=== PATIENT | male | born 1945 | race Caucasian/White ===

== ENCOUNTER 2017-08-12 14:59 | Emergency (ER) | payer OTHER ==
[~2017-08-12] VITALS: Ht 180.3 cm; Wt 90.9 kg
[~2017-08-12 14:59] MED LIST: B/P; CIPRO500 MG PO; DIFLUCAN200 MG PO; KEFLEX500 MG PO; PYRIDIUM100 MG PO
[2017-08-12 15:40] LABS: HEMOGLOBIN 14.4 G/DL (12.5-16.6); MCH 32.5 PG (29.0-34.0); MCV 90.3 FL (86-99); PLATELET COUNT 184 K/uL (156-360); RBC DIS.WIDTH-CV 12.6 % (11.8-14.6); RBC DIS.WIDTH-SD 41.8 % (39-53); RED BLOOD COUNT 4.43 M/uL (4.00-5.50); WHITE BLOOD COUNT 8.7 K/uL (4.1-10.2)
[2017-08-12 15:52] LABS: CHLORIDE 107 mEq/L (99-109); POTASSIUM 4.3 mEq/L (3.7-5.4); SODIUM 135 mEq/L (136-147)
[2017-08-12 15:54] LABS: GLUCOSE 225 mg/dL (70-99)
[2017-08-12 15:57] LABS: CREATININE 0.9 mg/dL (0.6-1.3); GFR ESTIMATE (CALCULATED) > 59 mL/min/ (58.99-99999)
[2017-08-12 15:58] LABS: UREA NITROGEN (BUN) 18 mg/dL (9-23)
[2017-08-12] MEDS ORDERED: ZOFRAN ODT4 MG PO (18:12)
[2017-08-12] MEDS ORDERED: FLOMAX0.4 MG PO (18:12)
[2017-08-12] MEDS ORDERED: BACTRIM,SEPT1 TABLET PO (18:12)
[2017-08-12] MEDS ORDERED: ULTRAM50 MG PO (18:12)
[2017-08-12 18:32] VITALS: BP 138/82
== END 2017-08-12 18:33 | disposition home or self-care (01) ==
LOC: EME 14:59
DX: N13.2 Hydronephrosis with renal and ureteral calculous obstruction (principal); Z87.442 Personal history of urinary calculi; I10 Essential (primary) hypertension; R73.03 Prediabetes; Z85.828 Personal history of other malignant neoplasm of skin
CPT/HCPCS: 74176; 80048; 81003; 85027; 99281; 99285; J1885; J2405; J7030

== ENCOUNTER 2018-01-19 12:22 | Inpatient (IN) | payer OTHER ==
[~2018-01-19] VITALS: Ht 180.3 cm; Wt 87.9 kg
[~2018-01-19 12:22] MED LIST changes: +BACTRIM,SEPT1 TABLET PO; +FLOMAX0.4 MG PO; +ULTRAM50 MG PO; +ZOFRAN ODT4 MG PO
[2018-01-19 12:44] LABS: BASOPHIL (%) 0.4 % (0-1); EOSINOPHIL (%) 0.2 % (0-5); HEMATOCRIT 38.7 % (38.0-50.0); HEMOGLOBIN 13.9 G/DL (12.5-16.6); IMMATURE GRANULOCYTE (%) 0.2 % (0.0-0.7); LYMPHOCYTE (%) 8.8 % (15-42); LYMPHOCYTE COUNT 0.7 K/uL (1.0-2.8); MCH 32.2 PG (29.0-34.0); MCHC 35.9 G/DL (30.0-36.0); MCV 89.6 FL (86-99); MONOCYTE (%) 8.8 % (3-12); MONOCYTE COUNT 0.7 K/uL (0-0.8); NEUTROPHIL (%) 81.6 % (45-76); NEUTROPHIL COUNT 6.6 K/uL (1.8-6.4); PLATELET COUNT 167 K/uL (156-360); RBC DIS.WIDTH-CV 12.7 % (11.8-14.6); RBC DIS.WIDTH-SD 41.7 % (39-53); RED BLOOD COUNT 4.32 M/uL (4.00-5.50); WHITE BLOOD COUNT 8.2 K/uL (4.1-10.2)
[2018-01-19 12:48] LABS: APPEARANCE SL.HAZY ((CLEAR)); BILIRUBIN NEGATIVE; BLOOD NEGATIVE; COLOR AMBER ((YELLOW)); GLUCOSE (STRIP) NEGATIVE; KETONES NEGATIVE; LEUKOCYTES MODERATE; NITRITE NEGATIVE; PROTEIN (STRIP) NEGATIVE; SPECIFIC GRAVITY 1.018 (1.000-1.030); UROBILINOGEN 0.2 MG/DL (0.2-1.0)
[2018-01-19 13:01] LABS: BACTERIA RARE /HPF; EPITHELIAL CELLS NONE SEEN /HPF; MUCUS TRACE /LPF; RED BLOOD CELLS 0-5 /HPF (0-5); UCUL ADDED? YES; WHITE BLOOD CELLS 15-20 /HPF (0-5)
[2018-01-19 13:10] LABS: CHLORIDE 104 MEQ/L (99-109); POTASSIUM 4.3 MEQ/L (3.7-5.4); SODIUM 138 MEQ/L (136-147)
[2018-01-19 13:16] LABS: CREATININE 0.9 MG/DL (0.6-1.3); GFR ESTIMATE (CALCULATED) > 59 mL/min/ (58.99-99999); GLUCOSE 136 mg/dL (70-99); UREA NITROGEN (BUN) 18 mg/dL (9-23)
[2018-01-19] MEDS ORDERED: LOW DOSE ASPIRI81 M1 PO (14:59)
[2018-01-19] MEDS ORDERED: FLOMAX0.4 MG PO (14:59)
[2018-01-19] MEDS ORDERED: ONCE DAILY1 EACH PO (15:00)
[2018-01-19] MEDS ORDERED: COZAAR50 MG PO (15:00)
[2018-01-19] MEDS ORDERED: HIPREX1 GM PO (15:01)
[2018-01-19] MEDS ORDERED: BUMEX1 MG PO (15:01)
[2018-01-19 16:27] VITALS: BP 140/80
[2018-01-19 19:58] VITALS: BP 147/80
[2018-01-19 23:28] VITALS: BP 125/58
[2018-01-20 04:21] VITALS: BP 119/64
[2018-01-20 08:12] VITALS: BP 120/80
[2018-01-20 11:01] VITALS: BP 132/72
[2018-01-20 15:36] VITALS: BP 130/80
[2018-01-20 19:12] VITALS: BP 144/76
[2018-01-20 23:35] VITALS: BP 131/69
[2018-01-21 04:29] VITALS: BP 161/89
[2018-01-21 08:03] VITALS: BP 134/70
[2018-01-21 11:36] VITALS: BP 132/72
[2018-01-21 15:47] VITALS: BP 136/70
[2018-01-21 19:56] VITALS: BP 154/82
[2018-01-21 23:11] VITALS: BP 144/69
[2018-01-22 03:50] VITALS: BP 122/68
[2018-01-22 08:52] VITALS: BP 118/68
[2018-01-22] MEDS ORDERED: VALACYCLOVIR500 MG PO (10:33)
[2018-01-22] MEDS ORDERED: HIPREX1 GM PO (10:36)
== END 2018-01-22 11:45 | disposition home or self-care (01) | DRG 690 ==
LOC: EME 12:22 → EDOF 15:01 → 3EAST 16:16
PROVIDERS: Internal Medicine
DX: N10 Acute pyelonephritis (principal); B02.8 Zoster with other complications; E11.9 Type 2 diabetes mellitus without complications; I10 Essential (primary) hypertension; N40.1 Benign prostatic hyperplasia with lower urinary tract symptoms; R33.8 Other retention of urine; H92.22 Otorrhagia, left ear; Z85.828 Personal history of other malignant neoplasm of skin
CPT/HCPCS: 71046; 80048; 81003; 82948; 83605; 85025; 87086; 99281; 99284; J0692; J0696; J1644